=== PATIENT | female | born 1975 | race Native Hawaiian/Other Pacific Islander ===

== ENCOUNTER 2019-04-20 23:32 | Emergency (ER) | payer SELFPAY ==
[~2019-04-20] VITALS: Ht 170.2 cm; Wt 86.4 kg
[2019-04-21] MEDS ORDERED: NORCO 5/325MG TABLET (BULK FOR ED) PO ONE (01:30)
[2019-04-21 01:46] VITALS: BP 129/90
--- NOTE | 2019-04-21 07:58 | REP ---
Clinical: Trauma. Technique: AP, lateral, bilateral oblique views of the left elbow. Findings: Soft tissue swelling is appreciated. Lateral view is limited due to rotation. No obvious acute fracture or dislocation identified. Subtle injury to the radial head cannot definitively be excluded. Impression: Limited examination with limited lateral view. If the patient remains symptomatic consider reevaluation. Electronically Signed by Clint Demarco MD 04/21/2019 07:49 A
== END 2019-04-21 02:04 | disposition home or self-care (01) ==
LOC: M ED 23:32
DX: S59.902A Unspecified injury of left elbow, initial encounter (principal); W01.198A Fall on same level from slipping, tripping and stumbling with subsequent striking against other object, initial encounter; Y92.098 Other place in other non-institutional residence as the place of occurrence of the external cause